=== PATIENT | female | born 1995 | race Two or more races ===

== ENCOUNTER 2018-11-12 17:09 | Emergency (ER) | payer SELFPAY ==
[~2018-11-12] VITALS: Ht 152.4 cm; Wt 60.8 kg
[2018-11-12 17:30] VITALS: BP 114/78
--- NOTE | 2018-11-12 17:30 | NUR ---
ED Nurse Note: pt walked in to ER c/o Lt side chest pain 5/10 radiating to Lt arm. pt aao x4 and calm and cooperative. skin clean and intact.
[2018-11-12] MEDS ORDERED: ALPRAZOLAM0.25 MG ORAL (18:16)
[2018-11-12 18:21] VITALS: BP 116/64
--- NOTE | 2018-11-12 18:23 | NUR ---
ER DISCHARGE NOTE: Patient is cleared to be discharged per ERMD, pt is aox4, on room air, accompanied by family members, with stable vital signs. pt was given dc and prescription instructions, pt was able to verbalize understanding, pt id band removed. pt is able to ambulate with steady gait. pt took all belongings.
--- NOTE | 2018-11-12 21:18 | Emergency Room Report ---
History of Present Illness General Chief Complaint: Chest Pain Source: Patient Present Illness HPI 23-year-old female presents ED for evaluation. Patient complaining of chest pain. Charted today while at work. Midsternal, pressure-like, 5 out of 10, nonradiating. Also noted tingling sensation in both arms and hands. Denies shortness of breath. Denies history of hypertension or diabetes. Denies smoking or drug use. Patient states that she has been feeling very anxious lately. Is tearful on exam. States that her left her and she has to take care of the kids by herself. Denies SI or HI. Denies hearing voices. No other aggravating relieving factors. Denies any other associated symptoms Allergies: Coded Allergies: No Known Allergies (Unverified , 11/12/18) Patient History Past Medical History: none Past Surgical History: none Pertinent Family History: none Social History: Denies: smoking, alcohol use, drug use Last Menstrual Period: October 2018; Now: No Immunizations: UTD Reviewed Nursing Documentation: PMH: Agreed; PSxH: Agreed Nursing Documentation-PMH Past Medical History: No Stated History Review of Systems All Other Systems: negative except mentioned in HPI Physical Exam Vital Signs Date Time Temp Pulse Resp B/P (MAP) Pulse Ox O2 Delivery O2 Flow Rate FiO2 11/12/18 17:12 98.2 76 16 114/78 98 Room Air Sp02 EP Interpretation: reviewed, normal General Appearance: no apparent distress, alert, GCS 15, non-toxic Head: normocephalic, atraumatic Eyes: bilateral eye normal inspection, bilateral eye PERRL ENT: hearing grossly normal, normal pharynx, no angioedema, normal voice Neck: full range of motion, supple/symm/no masses Respiratory: chest non-tender, lungs clear, normal breath sounds, speaking full sentences Cardiovascular #1: regular rate, rhythm, no edema Cardiovascular #2: 2+ carotid (R), 2+ carotid (L), 2+ radial (R), 2+ radial (L) , 2+ dorsalis pedis (R), 2+ dorsalis pedis (L) Gastrointestinal: normal bowel sounds, non tender, soft, non-distended, no guarding, no rebound Rectal: deferred Genitourinary: normal inspection, no CVA tenderness Musculoskeletal: back normal, gait/station normal, normal range of motion, non- tender Neurologic: alert, oriented x3, responsive, motor strength/tone normal, sensory intact, speech normal Psychiatric: judgement/insight normal, memory normal, no suicidal/homicidal ideation, no delusions, anxious Reflexes: 3+ bicep (R), 3+ bicep (L), 3+ tricep (R), 3+ tricep (L), 3+ knee (R) , 3+ knee (L) Skin: normal color, no rash, warm/dry, well hydrated Lymphatic: no adenopathy Medical Decision Making Diagnostic Impression: Primary Impression: Anxiety ER Course Hospital Course 23-year-old female presents ED complaining of chest tightness, tingling in both hands. Differential diagnoses include: NC/unstable angina, dehydration, anxiety Clinical course Patient placed on stretcher. on media monitor. After initial history, physical exam reveals young female in no acute distress. Patient is tearful on exam. Denies SI or HI. Answering questions appropriately. 5 out of 5 motor strength in both extremities. Sensations intact. Remainder physical exam unremarkable Accu-Chek within normal limits EKGnormal sinus rhythm no acute ischemic changes interpreted by me Discussed findings with patient. She does report having panic attack recently the last few weeks. States has been multiple stressors in her life including work, family. States that her left her. She taking care of the kids alone. Denies SI or HI. I do not suspect any emergent psychiatric evaluation required at this time. We will prescribe low-dose Xanax Patient states she has a PMD. We'll also provide mental health referrals. Safe for discharge and close outpatient follow-up I. I feel this is a highly complex case requiring extensive working including EKG/Rhythm strip, Xray/CT/US, Blood/urine lab work, repeat exams while in ED, and administration of strong opiates/narcotics for pain control, admission to hospital or close patient follow up. Diagnosis - anxiety Stable and discharged to home with Rx Xanax. Followup with PMD/psych. Return to ED if symptoms recur or worse EKG Diagnostic Results Rate: normal Rhythm: NSR ST Segments: no acute changes ASA given to the pt in ED: No Rhythm Strip Diag. Results EP Interpretation: yes Rhythm: NSR, no PVC's, no ectopy Last Vital Signs Date Time Temp Pulse Resp B/P (MAP) Pulse Ox O2 Delivery O2 Flow Rate FiO2 11/12/18 18:21 98.1 64 16 116/64 98 Room Air Status: improved Disposition: HOME, SELF-CARE Condition: Stable Scripts Alprazolam* (XANAX*) 0.25 Mg Tablet 0.25 MG ORAL BID PRN for For Anxiety, #10 TAB Prov: Farrukh Gomez MD 11/12/18 Referrals: [facility] Patient Instructions: Panic Attacks, [id number] Farrukh Gomez MD Nov 12, 2018 21:18
--- NOTE | 2018-11-13 19:17 | Cardiology Report ---
APPROVED REPORT EKG Measurement Heart [id number] Normal sinus rhythm Normal ECG
== END 2018-11-12 18:00 | disposition home or self-care (01) ==
LOC: EMR 17:56
DX: F41.9 Anxiety disorder, unspecified (principal)
CPT/HCPCS: 82962; 93005; 99283